=== PATIENT | female | born 2000 | race Caucasian/White ===

== ENCOUNTER 2019-11-06 08:52 | Emergency (ER) | payer OTHER, SELFPAY ==
[2019-11-06 08:59] VITALS: BP 122/63; PULSE 68; RESP 18; TEMP 36.6; O2SAT 97
--- NOTE | 2019-11-06 09:51 | ED.NAVMDI ---
HPI - Nausea/Vomiting/Diarrhea General Chief complaint: Nausea/Vomiting/Diarrhea Stated complaint: nausea Time Seen by Provider: 11/06/19 09:51 Source: patient History of Present Illness HPI Narrative: Patient presents with a history of 2 days of nausea and vomiting. Denies diarrhea no constipation. Patient states she was at her OB traffic engineer office yesterday morning with same complaints and given a clean bill of health. Patient states she has irregular periods and is scheduled for an ultrasound by her OB traffic engineer next week. Patient reports that she had lab work drawn at her OB office yesterday. Patient states she was told that everything was within normal limits. Patient has an appointment to follow-up with her OB traffic engineer after the ultrasound next week. Patient states she is able to tolerate liquids well but feels nauseated at times. No abdominal pain no pelvic pain denies any urinary symptoms. Patient states her OB traffic engineer told her to relax and the nausea would resolve. Patient has had no episodes of nausea or vomiting for the past 24 hours. Related Data Allergies Allergy/AdvReac Type Severity Reaction Status Date / Time Penicillins Allergy Mild Verified 12/18/08 14:34 Review of Systems Review of Systems: Narrative: CONSTITUTIONAL: Denies fever, chills, or sweats. EYES: Denies visual changes, redness, or discharge. ENT: Denies rhinorrhea, congestion, sore throat, or otalgia. CARDIOVASCULAR: Denies chest pain, palpitations, or edema. RESPIRATORY: Denies cough or dyspnea. GASTROINTESTINAL: Denies abdominal pain, nausea, vomiting, or diarrhea. GENITOURINARY: Denies dysuria or hematuria. SKIN: Denies rash or itching. MUSCULOSKELETAL: Denies back pain, joint pain, or myalgia. NEUROLOGIC: Denies headache, numbness, or weakness. PSYCHIATRIC: Denies anxiety or depression. PMFSH Social History Social History Gender identity (if verbalized by the patient): Female Comments At time of signature, agree with nursing past medical, surgical, social and family history. There is no relevant family history pertinent to the presenting complaint Exam Narrative: Exam Narrative: GENERAL: Well-appearing, well-nourished, and in no acute distress. HEAD: Normocephalic, atraumatic. EYES: PERRLA and EOMI. ENT: Nares clear, no rhinorrhea or epistaxis. Mucous membranes moist. NECK: Supple. CHEST: Clear to auscultation. No respiratory distress. HEART: Regular rate and rhythm. No murmur heard. Normal peripheral pulses. ABDOMEN: Soft, nontender, nondistended, normal active bowel sounds. EXTREMITIES: Normal range of motion. No edema. SKIN: Warm, dry, no rash. NEURO: No focal deficits. Alert and oriented x3. [place] Coma Scale Eye Opening: Spontaneous 4 [place] Coma Scale Motor: Obeys Commands 6 [place] Coma Scale Verbal: Oriented 5 [place] Coma Scale Total 15 Course Vital Signs Vital signs: Vital Signs Temperature 36.6 C 11/06/19 08:59 Pulse Rate 68 11/06/19 08:59 Respiratory Rate 18 11/06/19 08:59 Blood Pressure 122/63 11/06/19 08:59 Pulse Oximetry 97 11/06/19 08:59 Temperature 36.6 C 11/06/19 08:59 Pulse Rate 68 11/06/19 08:59 Respiratory Rate 18 11/06/19 08:59 Blood Pressure 122/63 11/06/19 08:59 Pulse Oximetry 97 11/06/19 08:59 MDM - Nausea/Vomiting/Diarrhea Lab Data Labs: UCG Bedside Result Negative Reference Range: Negative UCG Bedside Result Negative Reference Range: Negative Critical Care Time Critical Care Time Critical Care Time: No Discharge Plan Discharge Clinical Impression: Nausea alone Patient Disposition: Home, Self-Care Condition: Stable Instructions: Antibiotic Form Additional Instructions: Clear liquids for the next 8-10 hours, then advance to a bland diet as tolerated A bland diet can consist of--BRAT diet which is bananas, rice, applesauce, and toast Avoid fried, greasy, fatty, fr
== END 2019-11-06 10:11 | disposition home or self-care (01) ==
PROVIDERS: Emergency Provider Nurse Practitioner Family
DX: R11.0 Nausea (principal)
CPT/HCPCS: 81025; 99203; G0463

== ENCOUNTER 2020-02-16 08:20 | Emergency (ER) | payer OTHER, SELFPAY ==
[2020-02-16 08:26] VITALS: BP 112/54; PULSE 65; RESP 16; TEMP 36.9; O2SAT 100
--- NOTE | 2020-02-16 08:53 | ED.SKABFB ---
HPI - Skin/Abscess/Foreign Bdy General Chief complaint: Skin/Abscess/Foreign Body Stated complaint: possible ringworm on rear Time Seen by Provider: 02/16/20 08:49 Source: patient and RN notes reviewed Mode of arrival: ambulatory Limitations: no limitations History of Present Illness HPI narrative: Patient presents today complaining of an area of itching to the right buttock, that she noticed upon waking this morning.Denies any known insect bites. She has tried no interventions prior to arrival. Denies pain. MD complaint: rash Related Data Home Medications Medication Instructions Recorded Confirmed PNV cmb#95-ferrous fumarate-FA 1 tablet PO DAILY 02/16/20 02/16/20 [] quetiapine 100 mg PO DAILY 02/16/20 02/16/20 Allergies Allergy/AdvReac Type Severity Reaction Status Date / Time Penicillins Allergy Mild Hives Verified 02/16/20 08:38 alprazolam [From Xanax] Allergy Hyperactive Verified 02/16/20 08:38 etonogestrel [From Nexplanon] Allergy Rash Verified 02/16/20 08:38 Review of Systems Review of Systems: Narrative: CONSTITUTIONAL: Denies body aches, fever, chills, or sweats. EYES: Denies visual changes, redness, or discharge. ENT: Denies rhinorrhea, congestion, sore throat, or otalgia. CARDIOVASCULAR: Denies chest pain, palpitations, or edema. RESPIRATORY: Denies cough or dyspnea. GASTROINTESTINAL: Denies abdominal pain, nausea, vomiting, or diarrhea. GENITOURINARY: Denies dysuria or hematuria. SKIN: Denies itching, or wounds.+Pruritic rash to right buttocks MUSCULOSKELETAL: Denies back pain, joint pain, or myalgia. NEUROLOGIC: Denies headache, numbness, tingling, or weakness. PSYCH: Denies depression or anxiety. [facility] Past Medical History Medical History (Updated 02/16/20 @ 08:56 by Leah Alarcon, AGRONOMY PROFESSOR, ) Anxiety Depression Social History Social History Gender identity (if verbalized by the patient): Female Comments At time of signature, I have reviewed and agree with nursing past medical, surgical, social and family history unless otherwise noted. Please see nursing chart for further information. There is no relevant family history pertinent to the presenting complaint Exam Narrative: Exam Narrative: GENERAL: Well-appearing, well-nourished, and in no acute distress. HEAD: Normocephalic, atraumatic. EYES: EOMI. No redness or drainage. Conjunctivae normal. ENT: Mucous membranes pink and moist. NECK: Normal AROM. CHEST: No respiratory distress. EXTREMITIES: Normal range of motion. No edema. SKIN: Warm, dry. Capillary refill normal. Normal skin turgor. 2x2 cm area of erythematous rash with central clearing, consistent with ringworm. NEURO: No focal deficits. Alert and oriented x3. Gait steady. PSYCH: Normal affect. No signs of depression or anxiety. Course Vital Signs Vital signs: Vital Signs Temperature 98.4 F 02/16/20 08:26 Pulse Rate 65 02/16/20 08:26 Respiratory Rate 16 02/16/20 08:26 Blood Pressure 112/54 L 02/16/20 08:26 Pulse Oximetry 100 02/16/20 08:26 Temperature 98.4 F 02/16/20 08:26 Pulse Rate 65 02/16/20 08:26 Respiratory Rate 16 02/16/20 08:26 Blood Pressure 112/54 L 02/16/20 08:26 Pulse Oximetry 100 02/16/20 08:26 MDM - Skin/Abscess/Foreign Bdy Differential Diagnosis Differential diagnosis: Likely abscess of skin or subcutaneous tissue, urticaria, herpes zoster, cellulitis, eczema, insect bites, impetigo and contact dermatitis Critical Care Time Critical Care Time Critical Care Time: No Discharge Plan Discharge Clinical Impression: Ringworm of body Clinical Impression: (Ruled Out): Impetigo Patient Disposition: Home, Self-Care Condition: Stable Instructions: Tinea Corporis (ED) Additional Instructions: The rash on your buttock is likely ringworm. Please purchase [id number] clotrimazole cream and 1% hydrocortisone. Mix them equally together twice a day and apply. Try not to scratch the
== END 2020-02-16 08:59 | disposition home or self-care (01) ==
PROVIDERS: Emergency Provider Nurse Practitioner; PCP Nurse Practitioner Family
DX: B35.4 Tinea corporis (principal)
CPT/HCPCS: 99211; G0463

== ENCOUNTER 2021-01-06 12:51 | Emergency (ER) | payer OTHER, SELFPAY ==
[2021-01-06 13:00] VITALS: BP 126/63; PULSE 84; RESP 18; TEMP 36.8; O2SAT 99
--- NOTE | 2021-01-06 13:02 | ED.ABDPAIN ---
HPI - Abdominal Pain General Chief Complaint: Abdominal Pain Stated Complaint: pain in abdomen Time Seen by Provider: 01/06/21 13:02 Source: patient and RN notes reviewed History of Present Illness HPI narrative: Patient is a 20-year-old female who presents the urgent care with complaints of lower abdominal pains. Patient states that they have been present for approximately 1 or 2 weeks and she has had intermittent nausea. Patient denies of any vomiting or fevers. 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 Patient states that she has had 2+ test and has not had a period since October. Patient wanted confirmation of . Denies of any urinary symptoms. States that she is called her LIGHTING TECHNICIAN several times and they have not gotten back to her for an appointment. No other acute complaints. No acute distress noted. Patient aware of the plan of care. Some parts of this dictation were generated by voice recognition software and may contain typographical and/or grammatical inaccuracies. Related Data Home Medications Medication Instructions Recorded Confirmed vit no.347-qwav-[id number] 1 tablet PO DAILY 01/06/21 01/06/21 [Classic ] Allergies Allergy/AdvReac Type Severity Reaction Status Date / Time Penicillins Allergy Mild Hives Verified 01/06/21 13:11 alprazolam [From Xanax] Allergy Hyperactive Verified 01/06/21 13:11 etonogestrel [From Nexplanon] Allergy Rash Verified 01/06/21 13:11 Review of Systems Review of Systems: Narrative: CONSTITUTIONAL: Denies fever, chills, or sweats. EYES: Denies visual changes, redness, or discharge. ENT: Denies rhinorrhea, congestion, sore throat, or otalgia. CARDIOVASCULAR: Denies chest pain, palpitations, or edema. RESPIRATORY: Denies cough or dyspnea. GASTROINTESTINAL: Reports of intermittent lower abdominal pains with persistent nausea GENITOURINARY: Denies dysuria or hematuria. SKIN: Denies rash or itching. MUSCULOSKELETAL: Denies back pain, joint pain, or myalgia. NEUROLOGIC: Denies headache, numbness, or weakness. All other systems reviewed are negative, except as documented in HPI. PENDING SALE TO [facility] Past Medical History Medical History (Updated 01/06/21 @ 13:24 by Leah E. Springman, BACK WEDGER) Anxiety Depression Social History Social History Gender identity (if verbalized by the patient): Female Comments At the time of my signature, I reviewed and agree with the nursing past medical, surgical, social, and family history. There is no relevant family history pertinent to the patient complaint. Exam Narrative: Exam Narrative: GENERAL: This is a well-nourished, well-developed patient, in no apparent distress. HEAD: normocephalic, atraumatic. EYES: PERRL. Sclera clear/white. Vision is grossly intact. EARS: External ears normal NOSE: External nose normal with no obvious nasal discharge, nares without redness, no rhinorrhea. THROAT: Mucous membranes moist, posterior pharynx clear. NECK: Neck supple CARDIOVASCULAR: Regular rate GASTROINTESTINAL: Abdomen soft, mild diffuse lower abdominal tenderness,, nondistended. Bowel sounds are active. No hepato-splenomegaly, or palpable masses. No guarding. SKIN: warm, intact with no suspicious lesions or rash, good texture and turgor. NEURO: awake, alert, and oriented to person, place and time. There were no obvious focal neurologic abnormalities. EXTREMITIES: No clubbing, cyanosis, or edema. Course Vital Signs Vital signs: Vital Signs Temperature 98.2 F 01/06/21 13:00 Pulse Rate 84 01/06/21 13:00 Respiratory Rate 18 01/06/21 13:00 Blood Pressure 126/63 01/06/21 13:00 Pulse Oximetry 99 01/06/21 13:00 Temperature 98.2 F 01/06/21 13:00 Pulse Rate 84 01/06/21 13:00 Respiratory Rate 18 01/06/21 13:00 Blood Pressure 126/63 01/06/21 13:00 Pulse Oximetry 99 01/06/21 13:00 reviewed MDM - Abdominal Pain MDM [facility]
== END 2021-01-06 13:25 | disposition home or self-care (01) ==
PROVIDERS: Emergency Provider Nurse Practitioner Family; PCP Nurse Practitioner Family
DX: R10.30 Lower abdominal pain, unspecified (principal); Z87.42 Personal history of other diseases of the female genital tract
CPT/HCPCS: 81003; 81025; 99213; G0463

== ENCOUNTER 2024-12-24 08:32 | Emergency (ER) | payer OTHER, SELFPAY ==
[2024-12-24 08:39] VITALS: BP 118/66; PULSE 72; RESP 20; TEMP 36.3; O2SAT 100
--- NOTE | 2024-12-24 08:44 | ED_ITS ---
HPI - Skin/Abscess/Foreign Bdy General Chief complaint: Skin/Abscess/Foreign Body Stated complaint: Skin Sore Time Seen by Provider: 12/24/24 08:45 Source: patient, RN notes reviewed and old records reviewed Mode of arrival: ambulatory Limitations: no limitations History of Present Illness HPI narrative: 24 year old female who presents to [facility] care with complaints of skin sore to the lower right buttock noticed last or Tuesday that is painful and has been warm. Patient reports that it did have a white pustule on it and had been red. Patient reports that she has not applied anything to area. Patient is 36 weeks . Patient denies any known fevers, chills or sweats. MD complaint: abscess/boil (small superficial on buttock) Onset (ago): day(s) (4-5 days) Location: buttocks Severity scale (1-10): 3 Treatments prior to arrival: none Related Data Home Medications ?Medication ?Instructions ?Recorded ?Confirmed ?Last Taken ?Type vits no.126-ferrous fum 1 tablet PO DAILY 01/06/21 01/06/21 Unknown History 28 mg iron-folic acid 800 mcg tablet (Classic ) Allergies Allergy/AdvReac Type Severity Reaction Status Date / Time Penicillins Allergy Mild Hives Verified 12/24/24 08:44 alprazolam (From Xanax) Allergy Hyperactive Verified 12/24/24 08:44 etonogestrel (From Nexplanon) Allergy Rash Verified 12/24/24 08:44 Review of Systems Review of Systems: CONSTITUTIONAL: Denies fever, chills, or sweats. CARDIOVASCULAR: Denies chest pain, palpitations, or edema. RESPIRATORY: Denies cough or dyspnea. GASTROINTESTINAL: Denies abdominal pain, nausea, vomiting SKIN: Reports small area of redness with no present pustule or any drainage noted or any warmth, no fluctuance of skin or surrounding tissue MUSCULOSKELETAL: Denies myalgia. NEUROLOGIC: Denies headache, numbness All systems reviewed & are unremarkable except as noted in HPI and below PMFSH Past Medical History Medical History (Updated 12/25/24 @ 11:44 by Danielle Humphries NP) Polycystic ovary syndrome Depression Anxiety Surgical History Surgical History (Updated 12/25/24 @ 11:24 by Danielle Humphries NP) History of cholecystectomy Social History Social History (Updated 12/25/24 @ 11:43 by Danielle Humphries NP) Smoking status: Current every day smoker Tobacco type: e-cigarettes/vaping Gender identity (if verbalized by the patient): Female Comments At time of signature, agree with nursing past medical, surgical, social and family history. There is no relevant family history pertinent to the presenting complaint Exam Narrative: GENERAL: Well-appearing, well-nourished, and in no acute distress. HEAD: Normocephalic, atraumatic. EYES: PERRLA and EOMI. ENT: Nares clear, no rhinorrhea or epistaxis. Mucous membranes moist. NECK: Supple.no lymphadenopathy CHEST: Clear to auscultation. No respiratory distress.SAO2 100% on room air HEART: Regular rate and rhythm. No murmur heard. Normal peripheral pulses. ABDOMEN: Soft, nontender, nondistended, normal active bowel sounds. EXTREMITIES: Normal range of motion. No edema. SKIN: Warm, dry. minimal erythema, induration, tenderness, no warmth noted or pustule noted area 0.5cm X0.5cm No vesicles,pr pustule formation NEURO: No focal deficits. Alert and oriented x3. Course Course Emergency Course: Patient is aware of diagnosis, understands and agrees to treatment plan. Anticipatory guidance given. Patient agrees to follow-up as directed and is aware of reasons to seek care at the emergency department. Portions of this record may have been created with voice recognition software Level of Care: Express Care Visit Vital Signs Vital signs: Vital Signs Temperature 36.3 C L 12/24/24 08:39 Pulse Rate 72 12/24/24 08:39 Respiratory Rate 20 12/24/24 08:39 Blood Pressure 118/66 12/24/24 08:39 Pulse Oximetry 100 12/24/24 08:39 Oxygen Delivery Room Air 12/24/24 08:39 Temperature 36.3 C L 12/24/24 08:39 Pulse Rate 72 12/24/24 08:39 Respiratory Rate 20 12/24/24 08:39 Blood Pressure 118/66 12/24/24 08:39 Pulse Oximetry 100 12/24/24 08:39 Oxygen Delivery Room Air 12/24/24 08:39 Reviewed MDM - Skin/Abscess/Foreign Bdy MDM Narrative Medical decision making narrative: Does not appear at this time to be erythema multiforme, bullous, SJS, TEN; no evidence at this time to suggest RMSF, endocarditis or Lyme disease; patient looks well, nontoxic and is tolerating oral intake; no neurologic signs or symptoms; no headache, photophobia or neck pain; afebrile; appropriate for initial outpatient treatment; discussed the importance of follow-up, patient agrees. Patient does not have history of penetrating trauma, laceration, blunt trauma, recent surgery, immunosuppression, malignancy, obesity, alcoholism, corticosteroid use. Question cellulitis, necrotizing soft tissue infection, abscess. Differential Diagnosis Differential diagnosis: Likely abscess of skin or subcutaneous tissue, cellulitis and other (superficial abscess on buttock) Medical Records Attestation: I reviewed the patient's medical records. Critical Care Time Critical Care Time Critical Care Time: No Discharge Plan Discharge Clinical Impression: Cellulitis and abscess of buttock Patient Disposition: Home Condition: Stable Instructions: Antibiotic Form, Abscess Follow-up (ED) Additional Instructions: Cleanse wound daily with liquid Dial soap rinse well apply mupirocin ointment da nahomy x2 watch for increasing infection--redness, swelling, drainage Tylenol for any pain follow up with PCP in 7-10 days for a wound check recheck if develop fever, chills, increasing symptom Go to the ER if your symptoms become worse of if ANY new symptoms develop If your symptoms persist, change or worsen significantly before you can contact your personal physician then please, without delay, go to the emergency department for further evaluation. Follow-up with PCP in 7-10 days or sooner if needed Patient Language: Upper Sorbian Prescriptions: New mupirocin [Centany] 2 % ointment 1 applic topical BID Qty: 15 0RF cephalexin 500 mg capsule 500 mg PO Q12H Qty: 14 0RF No Action Classic 28 mg iron- 800 mcg tablet 1 tablet PO DAILY Follow-up/Referrals: Alirio,Alexa Yousif APN [Primary Care Provider] - Time of Disposition: 09:14 [place] Coma Scale Eyes: Open Verbal: Oriented and Alert Motor: Follows Commands [place] Coma Total Score: 15
--- OUTSIDE RECORDS SUMMARY | 2024-12-24 09:09 | XMS_ITS | Clinical Summary ---
Author Organization [facility] Address [address] [place] [address] Phone Care Team Providers Care Mortgage Counselor Name Role Phone Alexa Amezquita APRN, CNP Primary Care Provider [phone] Allergies Active Allergy Reactions Criticality Noted Date Comments Amoxicillin Hives 12/27/2015 Etonogestrel Nausea,Vomiting 01/12/2019 Alprazolam Hallucinations 06/05/2016 Medications Vit-Fe Fumarate-FA ( VITAMINS PO) Take 1 Tablet by mouth. (Classic ) 28-0.8 MG Tablet Active traMADol (Ultram) 50 MG TabletIndicatio ns:Cervical radiculopathy,R ight ankle pain,Low back pain Take 1 Tablet by mouth every 8 hours as needed for Moderate or more severe pain. 6 Tablet 09/04/2021 Active Active Problems Problem Noted Date Diagnosed Date Panic attacks 12/21/2016 Depression 12/19/2016 Estimated Date of Delivery Comme nts Yes 01/22/2025 Resolved Problems Problem Noted Date Diagnosed Date Resolved Date Intentional drug overdose 02/13/2021 Encounters Date Type Department Care Team Description 10/20/2024 6:36 PM [facility] - 10/20/2024 8:58 PM [facility] Emergency [facility] Emergency [address] [place] [address] May Gates APRN, CNP Abdominal pain during , antepartum Discharge Disposition: Short Term Hospital for Inpt Care 10/20/2024 Travel from Last 3 Months Immunizations Immunization Administration Dates Next Due Influenza Vaccine, Quadrivalent, PF 05/16/2017 Family History Medical History Relation Name Comments Heart Attack Father No Known Problems Mother Heart Disease Paternal Grandmother Relation Name Status Comments Father Mother Alive Paternal Grandmother Alive Social History Tobacco Use Types Packs/Day Years Used Date Smoking Tobacco: Former Smokeless Tobacco: Never Tobacco Cessation:Counseling Given: Yes Alcohol Use Standard Drinks/Week Comments Yes 0 (1 standard drink = 0.6 oz pur e alcohol) rarely Sexually Active Control Partners Comments Not Currently Male Estimated Date of Delivery Comme nts Yes 01/22/2025 Sex and Gender Information Value Date Recorded Sex Assigned at Not on file Legal Sex Female 11:31 PM CDT Gender Identity Not on file Sexual Orientation Not on file Last Filed Vital Signs Vital Sign Reading Time Taken Comments Blood Pressure 112/69 10/20/2024 8:48 PM [facility] Pulse 82 10/20/2024 8:48 PM [facility] Temperature 36.6 C (97.9 F) 10/20/2024 6:40 PM [facility] Respiratory Rate 17 10/20/2024 8:48 PM [facility] Oxygen Saturation 100% 10/20/2024 8:48 PM [facility] Inhaled Oxygen Concentration - - Weight 74.8 kg (165 lb) 10/20/2024 6:40 PM [facility] Height 147.3 cm (4' 10 ) 10/20/2024 6:40 PM [facility] Body Mass Index 34.49 10/20/2024 6:40 PM [facility] Plan of Treatment Health Maintenance Due Date Last Done Comments Hepatitis C Virus (HCV) Screening 1999 Pap Smear 2020 02/18/2017 SARS-COV-2 Immunization ( season) 2024 09/21/2021, 09/11/2021 Influenza Immunization (Season Ended) 2025 09/26/2018, 05/16/2017, 10/11/2016 Hepatitis B Immunization Completed 001, 01/06/2000, 1999 Pneumococcal Immunization Combined Aged Out 04/05/2001, 10/14/2000 No longer eligibl e based on patient's age to complete this topic DTaP/Tdap/Td Immunization Discontinued 2012, 04/19/2005, 03/22/2001, Additional history exists TdaP Immunization Completed 02/05/2013 Meningococcal Immunization (ACWY) Completed 09/08/2015, 02/05/2013 Meningococcal B Immunization Discontinued 06/01/2018, 10/11/2016 Human Papillomavirus (HPV) Immunization Completed 12/13/2018, 05/16/2014, 02/05/2013 Respiratory Syncytial Virus (RSV) Immunization (Adult) (No Doses Required) Completed Rotavirus Immunization Aged Out No lo nger eligible based on patient's age to complete this topic Procedures Procedure Name Priority Date/Time Associated Diagnosis Comments CBC WITH AUTO DIFFERENTIAL STAT 10/20/2024 6:56 PM [facility] URINALYSIS REFLEX IF INDICATED BY ABNORMAL RESULTS STAT 10/20/2024 6:56 PM [facility] CMP (COMPREHENSIVE METABOLIC PANEL) STAT 10/20/2024 6:56 PM [facility] COMPLETE BLOOD COUNT (CBC) WITH DIFF STAT 10/20/2024 6:56 PM [facility] RSV,SARS-COV-2,INFLUE NZA A&B BY PCR STAT 10/20/2024 6:56 PM [facility] PATHOLOGY CYTOLOGY BARREL PLANER Routine 02/18/2017 4:35 PM CDT Gynecologic exam normal Screen for STD (sexually transmitted disease) from Last 3 Months or Most Recently Relevant to Health Maintenance Results * (ABNORMAL) Urinalysis w/ Reflex (10/20/2024 6:56 PM [facility]) SPECIFIC GRAVITY 1.025 1.003 - 1.030 10/20/2024 7:45 PM [facility] URINE PH 6.0 5.0 - 9.0 10/20/2024 7:45 PM [facility] WBC ESTERASE Negative Negative 10/20/2024 7:45 PM [facility] NITRITE Negative Negative 10/20/2024 7:45 PM [facility] PROTEIN, RANDOM URINE 30 mg/dL(A) Negative 10/20/2024 7:45 PM [facility] URINE GLUCOSE, QUAL Negative Negative 10/20/2024 7:45 PM [facility] URINE KETONES 150 mg/dL(A) Negative 7:45 PM [facility] UROBILINOGEN Normal Normal mg/dL 10/20/2024 7:45 PM [facility] URINE BLOOD Negative Negative rosa/ul 10/20/2024 7:45 PM [facility] URINALYSIS COLOR Yellow 10/20/19 7:45 PM [facility] URINALYSIS CLARITY Very Cloudy 10/20/2024 7:45 PM [facility] WBC (Urine) 0-5 Negative, 0-5 /hpf 10/20/2024 7:45 PM [facility] URINE RBC'S 0-2 Negative, 0-2 /hpf 10/20/2024 7:45 PM [facility] EPITHELIAL CELLS Large amount squamous /lpf 10/20/2024 7:45 PM [facility] BACTERIA, URINE Few(A) Negative /hpf 10/20/2024 7:45 PM [facility] Urine URINE SPECIMEN / Unknown Non-Phlebotomy Collection / Unknown 10/20/2024 6:56 PM [facility] 10/20/2024 7:15 PM [facility] May Gates APRN, GREASER OPERATOR URINE ORDERABLES F inal Result [facility] [address] [place] [address] * GALE-COV-2 Flu RSV - (Quad PCR) (10/20/2024 6:56 PM [facility]) FLU A Negative Negative, Error 10/20/2024 7:54 PM [facility] FLU B Negative Negative 10/20/2024 7:54 PM [facility] RESP SYNC VIRUS Negative Negative 7:54 PM [facility] SARSCOV2 NOT DETECTED (Reference Range for this test is Not Detected) 10/20/2024 7:54 PM [facility] Comment:This test was perfor med by a Reverse Sterile Processing Manager PCR Method. Swab NASOPHARYNGEAL SWAB / Unknown Non-Phlebotomy Collection / Unknown 10/20/2024 6:56 PM [facility] 10/20/2024 7:15 PM [facility] us May Gates APRN, KESHAWN MICROBIOLOGY - GEN ERAL ORDERABLES Final Result [facility] [address] [place] [address] * (ABNORMAL) CBC with Auto Differential (10/20/2024 6:56 PM [facility]) WBC 12.97(H) 4.00 - 12.00 10(3)/mcL 10/20/2024 7:18 PM [facility] RBC 3.94 3.80 - 5.30 10(6)/mcL 10/20/2024 7:18 PM [facility] HEMOGLOBIN (HGB) 12.3 12.0 - 15.8 g/dL 10/20/2024 7:18 PM [facility] HEMATOCRIT (HCT) 36.2 36.0 - 47.0 % 10/20/2024 7:18 PM [facility] MCV 91.9 82.0 - 96.0 fL 10/20/2024 7:18 PM [facility] MCH 31.2 26.0 - 34.0 pg 10/20/2024 7:18 PM [facility] MCHC 34.0 31.0 - 36.0 g/dL 10/20/2024 7:18 PM [facility] PLATELET COUNT 212 140 - 440 10(3)/mcL 10/20/2024 7:18 PM [facility] RDW 12.0 11.8 - 15.5 % 10/20/2024 7:18 PM [facility] MPV 11.0 9.7 - 12.4 fL 10/20/2024 7:18 PM [facility] NEUTROPHILS 77.0(H) 47.0 - 73.0 % 10/20/2024 7:18 PM [facility] LYMPHOCYTES 15.7(L) 18.0 - 42.0 % 10/20/2024 7:18 PM [facility] MONOCYTES 6.6 4.0 - 12.0 % 10/20/2024 7:18 PM [facility] EOSINOPHILS 0.5 0.0 - 5.0 % 10/20/2024 7:18 PM [facility] BASOPHILS 0.2 0.0 - 1.0 % 10/20/2024 7:18 PM [facility] ABSOLUTE NEUTROPHILS 9.98(H) 1.60 - 7.70 10(3)/mcL 10/20/2024 7:18 PM [facility] ABSOLUTE LYMPHOCYTES 2.04 1.30 - 3.20 10(3)/[facility] 10/20/2024 7:18 PM [facility] ABSOLUTE MONOCYTES 0.85 0.20 - 1.00 10(3)/mcL 10/20/2024 7:18 PM [facility] ABSOLUTE EOSINOPHIL 0.07 0.00 - 0.40 10(3)/[facility] 10/20/2024 7:18 PM [facility] ABSOLUTE BASOPHILS 0.03 0.00 - 0.10 10(3)/[facility] 10/20/2024 7:18 PM [facility] NRBC PER 100 WBC 0 10/20/19 7:18 PM [facility] Blood Venipuncture / Unknown 10/20/2024 6:56 PM [facility] 10/20/2024 7:15 PM [facility] May Gates CHROME CLEANER, GREASER OPERATOR HEMATOLOGY ORDERAB LES Final Result [facility] [address] [place] [address] * (ABNORMAL) CMP (10/20/2024 6:56 PM [facility]) SODIUM 137 136 - 145 mmol/L 10/20/2024 7:39 PM [facility] POTASSIUM 3.5 3.5 - 5.1 mmol/L 10/20/2024 7:39 PM [facility] CHLORIDE 105 98 - 107 mmol/L 10/20/2024 7:39 PM [facility] CO2, VENOUS 21(L) 22 - 30 mmol/L 10/20/2024 7:39 PM [facility] ANION GAP 14.5 <18.0 mmol/L 10/20/2024 7:39 PM [facility] GLUCOSE 72 70 - 99 mg/dL 10/20/2024 7:39 PM [facility] BUN 11 5 - 18 mg/dL 10/20/2024 7:39 PM [facility] CREATININE, BLOOD 0.80 0.60 - 1.00 mg/dL 10/20/2024 7:39 PM [facility] BUN/CREATININE RATIO 14 12 - 20 ratio 10/20/2024 7:39 PM [facility] TOTAL PROTEIN 8.2(H) 6.0 - 8.0 g/dL 10/20/2024 7:39 PM [facility] ALBUMIN 4.0 3.5 - 5.0 g/dL 10/20/2024 7:39 PM [facility] A/G RATIO 1.0 1.0 - 2.2 10/20/2024 7:39 PM [facility] CALCIUM 9.0 8.7 - 10.5 mg/dL 10/20/2024 7:39 PM [facility] T BILI 0.3 0.2 - 1.2 mg/dL 10/20/2024 7:39 PM [facility] SGOT (AST) 23 6 - 42 U/L 10/20/2024 7:39 PM [facility] SGPT (ALT) 48 6 - 55 U/L 10/20/2024 7:39 PM [facility] ALKALINE PHOSPHATASE 111 40 - 150 U/L 10/20/2024 7:39 PM [facility] GFR, ESTIMATED >60 >=60 10/20/2024 7:39 PM [facility] Comment: Creatinine Clearance is the preferred criteria for selecting drug dose adjustments in renally impaired patients. The GFR is provided as additional pertinent clinical information. GFR is reported in mL/min/1.73 sq m. Calculation based on the Chronic Kidney Disease Epidemiology Collaboration (CKD- EPI) equation refit without adjustment for race. GFR, EST. >60 >=60 025 7:39 PM [facility] GFR, EST. NONAFRICAN >60 >=60 10/20/2024 7:39 PM [facility] Blood Venipuncture / Unknown 10/20/2024 6:56 PM [facility] 10/20/2024 7:15 PM [facility] us May Gates APRN, GREASER OPERATOR CHEMISTRY ORDERABL ES Final Result [facility] [address] [place] [address] * PATHOLOGY CYTOLOGY BARREL PLANER (02/18/2017 4:35 PM CDT) SPECIMEN ADEQUACY Satisfactory for evaluation. Endocervical cells present. 02/22/2017 8:43 AM CDT [facility] DESCRIPTIVE DIAGNOSIS Negative for intraepithelial lesions. No dysplastic cells present. 02/22/2017 8:43 AM CDT [facility] at 0843 CDT AUTOMATED EXAMINATION Analysis of this sample has been assisted by an automated imaging and review system ([employer] System, [employer], [place], [place]). This case is further evaluated and finalized by a home sales consultant and/or pathologist. 02/22/2017 8:43 AM CDT [facility] DISCLAIMER The PAP smear is a screening test designed to detect cancerous or precancerous cells of the uterine cervix. It is one of the best means available for detection of cervical cancer but still carries an inherent false-negative rate. The consequences of a false-negative PAP result can be minimized by adhering to current screening guidelines. The following are general guidelines recommended by the ACS, ASCP, ASCCP, and ACOG: PAP testing is recommended every three years for women 21-29, Co-Testing , a PAP test in conjunction with an HPV (Human Papillomavirus) test for women ages 30-65, and no PAP or HPV testing for women under the age of 21 or older than 65 unless clinically indicated. 02/22/2017 8:43 AM CDT [facility] Case Report Gynecologic Cytology Report Case: [id number] Authorizing Provider: Brian Mukherjee MD Collected: 02/18/2017 04:35 PM Ordering Location: [facility] Received: 02/18/2017 04:35 PM GROUP - OBSTETRICS AND GYNECOLOGY - [place] First Screen: Lizette Harris Specimen: Cervical/Endocervic al, liquid based thin layer preparation (Thin Prep ), CERVIX/ENDOCERVIX 02/22/2017 8:43 AM CDT [facility] Specimen of unknown material (specimen) CERVIX UTERI STRUCTURE / Unknown 02/18/2017 4:35 PM CDT 02/18/2017 4:35 PM CDT us Brian Mukherjee MD PATHOLOGY/CYTOLOGY ORDERABLES Final Result [facility] [address] [place] [address], from Last 3 Months or Most Recently Relevant to Health Maintenance Insurance MEDICAID [place] Advance Directives * Full Code (Latest Code Status on File) Date Activated Date Inactivated Comments 02/12/2021 3:33 AM 02/13/2021 7:32 PM CPR-Full David atment: FULL ARREST: Attempt Resuscitation/CPR wit intubation and mechanical ventilation. PRE-ARREST: Use entire range of life support measures to stabilize the patient. Care Teams Mortgage Counselor Relationship Specialty Start Date End Date Alexa Amezquita APRN, KESHAWN [address] [place] [address] PCP - General Family Medicine 10/23/18
--- OUTSIDE RECORDS SUMMARY | 2024-12-24 09:09 | XMS_ITS | Clinical Summary ---
Author Organization [facility] Address [address] [place] [address] Care Team Providers Care Call Center Manager Name Role Phone Alirio, Alexa Miles NP Primary Care Provider [phone] Windy Daly V. TAPROOM ATTENDANT Unavailable [phone] Allergies Active Allergy Reactions Criticality Noted Date Comments Amoxicillin Hives Medium 03/14/2019 Etonogestrel Rash Medium 04/20/2019 Alprazolam Hives Medium 03/14/2019 Medications oxyCODONE-acetamin ophen (PERCOCET) 5-325 mg per tabletIndications: Pain Take 1-2 tablets by mouth every 8 (eight) hours as needed for pain 20 tablet 3 025 Discontin ued(Patie nt Reported) traMADoL (ULTRAM) 50 mg tablet Take 1 tablet (50 mg total) by mouth every 6 (six) hours 20 tablet 3 025 Discontin ued(Patie nt Reported) ondansetron ODT (ZOFRAN-ODT) 4 mg disintegrating tablet Take 1 tablet (4 mg total) by mouth every 8 (eight) hours as needed for nausea or vomiting 20 tablet 3 025 Discontin ued(Patie nt Reported) Active Problems Problem Noted Date Diagnosed Date HROB: Hx HSV 12/04/2024 Overview (12/04/2024): Patient with history of genital herpes. Last outbreak 09/2023. Has been on valtrex suppression since. 12/04: denies symptoms. Is taking suppression HROB: 12/03/2024 Overview (12/04/2024): *Comanage with Dr. Luo* 1st Trimester: [x] Dating Criteria: EDC by L=1 [] Labs: T&S:) pos H/H: 12.4/36.87 Rubella: imm VZV: imm HepB: NR Hep C: NR HIV: RPR: [x] HgbA1c: 5.0 [x] NG/CT/Trich: -/-/- [x] UCx: neg [x] Hgb electrophoresis: normal 06/2025 [] Pap: need [] IOB EPDS= ([facility] referral if indicated) [x] Genetic screening: AFP neg in PNL [x] Carrier Screen: CF neg, SMA neg [] ASA at 12 weeks (if indicated) [] Feeding Preferences Survey: benefits of discussed with patient at RN IOB 2nd Trimester: [] Anatomy ultrasound: Incomplete on 10/15: heart/profile/intracranial anatomy not clearly visualized [] Placenta: [] Hgb: Plt: Ferritin: RPR: [] 1hr GTT (24-28wks): [] EPDS= PNBHS referral (if indicated): [] Second/Third trimester education packet given - (Date) [] Flu Shot (May-Aug): [] Tdap (27-36wks): [] Rhogam (if Rh neg): [] Childbirth classes discussed [] education (colostrum, expected breast changes). 3rd Trimester: [] H/H: Plt: HIV: RPR: T&S: [] GBS: [] NG/CT: Trich: [] RSV Vaccine (May-Sep @ 32-36w6d) weeks [] Final discussion-Discussed Baby Friendly-skin to skin, rooming in, support, formula safety. [] Breast Pump order form provided: (Date) Counseling: [] Discussed anticipated weight gain in [] Method of delivery: [] Bottle of CHG 4% and hand out provided @ 36wks (if planned) [] Timing of delivery: [] Method of Feeding: Discussed baby friendly, skin to skin, rooming in, support. Formula safety. [] education: completed in all 3 trimesters [] Method of Contraception: Discussed pills, patch, ring, injection, implant, IUD. [] Algorithm Developer: [] Car seat discussed [] PP depression counseling [] A visit is recommended at 2 and 6 weeks . There is a virtual visit option at 2 weeks . During that appointment we will check BP (if indicated), mental and physical wellness. Contraception will be discussed if patient chooses. Your discharge provider will recommend scheduling these visits upon discharge from the hospital. [x] Gardasil vaccine: s/p 3 doses HROB: Trichomonal vulvovaginitis 12/03/2024 Overview (12/04/2024): Referral records repot Flagyl was sent for patient on 08/07 after she reported having sex w/ partner who had not been treated. Pos trich on 07/13/24. 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 When the anti-M antibody has an IgG component, it may cause varying degrees of hemolysis in the fetus. Anti-M IgM can be detected in 10% of women with a positive antibody screen, while 0.01%- 0.7% of women are found to have clinically significant levels of anti-M IgG. Discussed with patient that any time a blood group inherited from the father is not present in the mother antepartum or intrapartum -maternal bleeding may stimulate an immune reaction in the mother. Maternal immune reactions may also occur following blood transfusion. The formation of maternal antibodies (alloimmunization) may lead to transplacental passage of antibodies into circulation which can cause hemolytic disease in the fetus and . Untreated this can lead to significant morbidity and mortality. We first discussed that risk for hemolytic disease can be determined with a paternal genotype and this would be the first management step if feasible Furthermore discussed with patient that non-invasive screening with doppler ultrasonography and established protocols can help prevent complications. We discussed the role of serial titers, serial MCA dopplers as applicable to this patient and recommend: titers today Plan: [] Titers today [] Repeat titer at 35-36 weeks HROB: Tobacco use 12/03/2024 Overview (12/04/2024): Vapes daily I have reviewing with the patient today her tobacco use and its obstetrical implications. Use of tobacco in has been associated with the following adverse outcomes: Spontaneous , labor, delivery, intrauterine growth restriction as well as intrauterine demise. Moreover, children exposed to tobacco smoke are at an increased risk of developing childhood asthma as well as sudden infant syndrome (SIDS) in the first 6 months of life. I do recommend cessation of tobacco use and have extensively discussed this with the patient, recognizing that this addiction is rather hard to quit. I have encouraged Alma Rosa to utilize the resource of the [employer]line, whose phone number is 8-878-TIOQNOW. HROB: Depression affecting 12/03/2024 Overview (12/04/2024): Hx of depression and self harm Mood today good Plan: - Patient follows with psychiatry - EPDS q visit Housing situation unstable 12/03/2024 Overview (12/03/2024): Patient reports living with family friends with boyfriend Safety check Urinary tract infection in female 04/20/2019 Acute cervicitis 04/20/2019 Estimated Date of Delivery Comme nts Yes 01/22/2025 Based on last me nstrual period of 04/17/2024 Resolved Problems Problem Noted Date Diagnosed Date Resolved Date Gallstones 12/15/2022 12/28/2022 Overview (12/15/2022): Added automatically from request for surgery [id number] Encounters Date Type Department Care Team Description 12/12/2024 Telephone [facility] [address] [place] [address] [address] [place] [address] Tea Bee RN 12/10/2024 Telephone [facility] [address] [place] [address] 3rd [address] [place] [phone] Tea Bee, CORA 12/10/2024 Telephone [facility] [address] [place] [address] [place] [phone] Tea Bee, CORA 12/06/2024 Treatment [facility] PATHOLOGY [address] [address] Kenya Jaimes MD 12/04/2024 2:00 PM CDT Initial [facility]stetrics and [facility]cology Clinic [address] [place] [address] [place] [phone] GA: 33w0d 12/04/2024 Telephone [facility] [address] [place] [address] [place] [phone] Ankita Baez 11/20/2024 Telephone [facility] [address] [place] [address] [place] [phone] Tea Bee, RN 11/20/2024 Telephone [facility] [address] [place] [address] [place] [phone] Tea Bee, CORA 11/19/2024 Telephone [facility] [address] [place] [address] [place] [phone] Tea Bee, CORA 10/11/2024 9:19 AM BOBBIN WINDER - 10/11/2024 11:59 PM BOBBIN WINDER Hospital Encounter [facility] [address] [place] [address] Encounter for supervision of normal , antepartum, unspecified Discharge Disposition: Discharge to home or self care from Last 3 Months Surgical History Surgery Date Site/Laterality Comments CHOLECYSTECTOMY 12/17/2022 Medical History Medical History Date Comments Migraines Anxiety Depression GERD (gastroesophageal reflux disease) Family History Medical History Relation Name Comments Heart disease Father Heart disease Mother Relation Name Status Comments Father Mother Alive Social History Tobacco Use Types Packs/Day Years Used Date Smoking Tobacco: Every Day Vaping Smokeless Tobacco: Never Tobacco Cessation:Ready to Q uit: Not Asked; Counseling Given: Not Answered Comments:vape Alcohol Use Standard Drinks/Week Comments Yes 0 (1 standard drink = 0.6 oz pur e alcohol) occaisonally AUDIT-C Answer Date Recorded Frequency of Alcohol Consumption Not on file 12/15/2022 Q2: How many drinks containi ng alcohol do you have on a typical day when you are drinking? Patient does not drink Frequency of Binge Drinking Not on file 12/04 Hunger Vital Sign Answer Date Recorded Within the past 12 months, y ou worried that your food would run out before you got the money to buy more. Never true 12/05/19 Within the past 12 months, t he food you bought just didn't last and you didn't have money to get more. Never true 12/04/2024 Personal Safety Answer Date Recorded Have you ever been in or are you currently in a harmful physical or emotional relationship or is someone making you feel afraid or unsafe? Denies 06/06/2024 Estimated Date of Delivery Comme nts Yes 01/22/2025 Based on last me nstrual period of 04/17/2024 Sex and Gender Information Value Date Recorded Sex Assigned at Not on file Legal Sex Female 4:48 PM BOBBIN WINDER Gender Identity Female 10/21/2024 12:19 AM BOBBIN WINDER Sexual Orientation Straight 10/21/2024 12 :19 AM BOBBIN WINDER Obstetrics History Para Term AB IAB SAB Ectopic Multiple Livin g Live Births 1 Date Outcome GA Total Labor Labor/2nd/3rd Weight Sex Type Anes PTL Tova A1 A5 Name Clin Current Summary Episode Dates Number of Fetuses Estimated Date of Delivery 12/04/2024 - Present (12/24/2024) 01/22/2025 (set by Rufina Mejía MD on 12/04/2024 based on Last Menstrual Period on 04/17/2024) Dating Summary Based On CANDACE GA Diff Last Menstrual Period on 04/17/2024 01/22/2025 Working Ultrasound on 06/06/2024 01/27/2025 -5d GA:6w3d Comment:CRL report under Allyssa burt Notes Progress Notes - Initial Pre anita - 12/04/2024 - GA:33w0d 12/04/2024 - 33w0d - Rufina Mejía MD Initial HROB Visit Date of Visit: 12/04/2024 4:53 PM Author: Kristin Mcclendon MD Referring Provider: Dr. Luo Alma Rosa Ramachandran is a 24 y.o. at 33w0d by L=1 who was referred for counseling regarding elevated anti-M titer. otherwise complicated by HSV (Valtrex), unstable housing, hx trich s/p neg YUMIKO, MJ and tobacco use, [place], depression, and hx cholecystectomy. Primary Obgyn recently left their practice and she has her first appointment with Dr. Luo coming up. She will decide if she wants to continue care there after the appointment. #Anti-M Ab: partner is A+, she is O+. She is very worried about the effect of this antibody on her . She was told that it would be detrimental to her baby's survival. This is her first . #hx HSV: last genital outbreak 09/2023, has been on valtrex suppression since #Tobacco & MJ use: vapes daily, recommended cessation #Depression: mood well controlled. Improved after reassurance today. #trich infection: s/p neg YUMIKO Patient Active Problem List Diagnosis Urinary tract infection in female Acute cervicitis HROB: HROB: Trichomonal vulvovaginitis HROB: Abnormal antibody titer HROB: Tobacco use HROB: Depression affecting Housing situation unstable HROB: Hx HSV Obstetric History: OB History Para Term AB Living 1 SAB IAB Ectopic Multiple Live Births # Outcome Date GA Lbr Sarkis/2nd Weight Sex Type Anes PTL Lv 1 Current Medical History: Past Medical History: Diagnosis Date Anxiety Depression GERD (gastroesophageal reflux disease) Migraines Allergies Allergen Reactions Amoxicillin Hives Implanon [Etonogestrel] Rash Xanax [Alprazolam] Hives Surgical History: Past Surgical History: Procedure Laterality Date CHOLECYSTECTOMY 12/17/2022 Family History: Family History Problem Relation Age of Onset Heart disease Mother Heart disease Father Social History: Social History Social History Narrative Not on file Physical Exam: Vitals: LMP 04/17/2024 General: Well appearing, pleasant female in NAD Heart: Regular rate and rhythm Lungs: non-labored Breasts: Deferred Abdomen: Soft, non-tender, non-distended Extremities: Warm and well perfused, non-tender, no lower extremity edema Assessment and Plan: Alma Rosa Ramachandran is a 24 y.o. at 33w0d by with complicated by: Problem List HROB: - Primary Overview *Comanage with Dr. Luo* 1st Trimester: [x] Dating Criteria: EDC by L=1 [] Labs: T&S:) pos H/H: 12.4/36.87 Rubella: imm VZV: imm HepB: NR Hep C: NR HIV: RPR: [x] HgbA1c: 5.0 [x] NG/CT/Trich: -/-/- [x] UCx: neg [x] Hgb electrophoresis: normal 06/2025 [] Pap: need [] IOB EPDS= (PBHS referral if indicated) [x] Genetic screening: AFP neg in PNL [x] Carrier Screen: CF neg, SMA neg [] ASA at 12 weeks (if indicated) [] Feeding Preferences Survey: benefits of discussed with patient at RN IOB 2nd Trimester: [] Anatomy ultrasound: Incomplete on 10/15: heart/profile/intracranial anatomy not clearly visualized [] Placenta: [] Hgb: Plt: Ferritin: RPR: [] 1hr GTT (24-28wks): [] EPDS= PNBHS referral (if indicated): [] Second/Third trimester education packet given - (Date) [] Flu Shot (May-Aug): [] Tdap (27-36wks): [] Rhogam (if Rh neg): [] Childbirth classes discussed [] education (colostrum, expected breast changes). 3rd Trimester: [] H/H: Plt: HIV: RPR: T&S: [] GBS: [] NG/CT: Trich: [] RSV Vaccine (May-Sep @ 32-36w6d) weeks [] Final discussion-Discussed Baby Friendly-skin to skin, rooming in, support, formula safety. [] Breast Pump order form provided: (Date) Counseling: [] Discussed anticipated weight gain in [] Method of delivery: [] Bottle of CHG 4% and hand out provided @ 36wks (if planned) [] Timing of delivery: [] Method of Feeding: Discussed baby friendly, skin to skin, rooming in, support. Formula safety. [] education: completed in all 3 trimesters [] Method of Contraception: Discussed pills, patch, ring, injection, implant, IUD. [] Algorithm Developer: [] Car seat discussed [] PP depression counseling [] A visit is recommended at 2 and 6 weeks . There is a virtual visit option at 2 weeks . During that appointment we will check BP (if indicated), mental and physical wellness. Contraception will be discussed if patient chooses. Your discharge provider will recommend scheduling these visits upon discharge from the hospital. [x] Gardasil vaccine: s/p 3 doses Relevant Orders Type and screen HROB: Trichomonal vulvovaginitis Overview Referral records repot Flagyl was sent for patient on 08/07 after she reported having sex w/ partner who had not been treated. Pos trich on 07/13/24. Reports negative YUMIKO HROB: Abnormal antibody titer Overview Referral for positive antibodyscreen PNL show antibody negative on 06/12/25 T&S 11/06/24: Anti-M 1:2 Counseling 12/04/24: The anti-M antibody is primarily an IgM antibody, although it may also be a combination of IgG and IgM antibodies. When the anti-M antibody has an IgG component, it may cause varying degrees of hemolysis in the fetus. Anti-M IgM can be detected in 10% of women with a positive antibody screen, while 0.01%- 0.7% of women are found to have clinically significant levels of anti-M IgG. Discussed with patient that any time a blood group inherited from the father is not present in the mother antepartum or intrapartum -maternal bleeding may stimulate an immune reaction in the mother. Maternal immune reactions may also occur following blood transfusion. The formation of maternal antibodies (alloimmunization) may lead to transplacental passage of antibodies into circulation which can cause hemolytic disease in the fetus and . Untreated this can lead to significant morbidity and mortality. We first discussed that risk for hemolytic disease can be determined with a paternal genotype and this would be the first management step if feasible Furthermore discussed with patient that non-invasive screening with doppler ultrasonography and established protocols can help prevent complications. We discussed the role of serial titers, serial MCA dopplers as applicable to this patient and recommend: titers today Plan: [] Titers today [] Repeat titer at 35-36 weeks Relevant Orders Type and screen HROB: Tobacco use Overview Vapes daily I have reviewing with the patient today her tobacco use and its obstetrical implications. Use of tobacco in has been associated with the following adverse outcomes: Spontaneous , labor, delivery, intrauterine growth restriction as well as intrauterine demise. Moreover, children exposed to tobacco smoke are at an increased risk of developing childhood asthma as well as sudden infant syndrome (SIDS) in the first 6 months of life. I do recommend cessation of tobacco use and have extensively discussed this with the patient, recognizing that this addiction is rather hard to quit. I have encouraged Alma Rosa to utilize the resource of the [employer], whose phone number is 8-429-UEHT-NOW. HROB: Depression affecting Overview Hx of depression and self harm Mood today good Plan: - Patient follows with psychiatry - EPDS q visit HROB: Hx HSV Overview Patient with history of genital herpes. Last outbreak 09/2023. Has been on valtrex suppression since. 12/04: denies symptoms. Is taking suppression Return to primary Obgyn for care. Recommend T&S at 35w to monitor titer. The patient was seen and discussed with Dr. Mcclendon and Dr. Greer. Rufina Mejía MD PGY-2 Obstetrics & Gynecology MFM Fellow Attestation I have seen and discussed Alma Rosa Ramachandran with the resident, Dr. Mejía on 12/04/2024. I have evaluated the patient and reviewed the treatment plan and recommendations. I agree with the findings and the plan of care as documented in the resident s note with the following addendum: Briefly, this is a 24 y.o. at 33w0d with complicated by anti-M titer, h/o SI, n/v, h/o HSV2, h/o trich, depression, asthma. Most recent titer anti-M 1:2. Repeat titer today, if below critical level of 1:16, anticipate repeat titer at 35-[address] Luo's office. If elevated, please notify HROB clinic. Otherwise, anticipate delivery at 39 weeks. Kristin Mcclendon MD Maternal- Medicine Fellow Cosigned by Lexis Greer MD at 12/08/2024 4:59 PM CDT Associated attestation - Lexis Greer MD - 12/08/2024 4:59 PM CDT I have seen and examined the patient. I agree with the findings and plan of care as documented in the resident/fellow's note. My total encounter time on 12/04/2024 was 30 minutes which was spent in the activities documented in the note. This includes time spent prior to the visit and after the visit in direct care of the patient. This time does not include time spent in any separately reportable services. Anti-M titer 1:[address] Luo, [facility] at [place]. Counseled regarding that she is below the critical titer for affecting blood levels. Recommend rechecking T&S in 1 month and if still <1:16 OK for standard care. We briefly discussed that this may affect future pregnancies if titer level changes. OK to continue routine care with Dr. Luo and follow up HROB prn. Lexis Greer MD [employer] Division of Maternal- Medicine Last Filed Vital Signs Vital Sign Reading Time Taken Comments Blood Pressure 116/61 06/06/2024 7:20 AM CDT Pulse 65 06/06/2024 7:20 AM CDT Temperature 36.5 C (97.7 F) 06/06/2024 1:54 AM CDT Respiratory Rate 14 06/06/2024 5:10 AM CDT Oxygen Saturation 98% 06/06/2024 7:20 AM CDT Inhaled Oxygen Concentration - - Weight 72.4 kg (159 lb 9.8 oz) 06/06/2024 1:54 A M CDT Height 147 cm (4' 9.87 ) 06/06/2024 1:54 AM CDT Body Mass Index 33.5 06/06/2024 1:54 AM CDT Plan of Treatment Health Maintenance Due Date Last Done Comments Cervical Cancer Screening 1999 Depression Screening 1999 Hepatitis C Screening 1999 Pneumococcal vaccine <65 (1 of 1 - PPSV23) 2005 04/05/2001, 10/14/2000 Regular Well Visit/Exam 18-64 2017 DTaP/Tdap/Td Vaccine (7 - Td or Tdap) 02/05/2023 02/05/2013, 04/19/2005, 03/22/2001, Additional history exists Influenza Vaccine (Season Ended) 2025 09/26/2018, 05/16/2017, 10/11/2016 Hepatitis B Screening Completed 03/22/2001 , 01/06/2000, 1999 Varicella Vaccines Completed 02/05/2013, 10/14/2000 HPV Vaccines Completed 12/13/2018, 05/06, 02/05/2013 Medical Devices Implanted Type Area Pvc Monitor Device Identifier Shelf Expiration Date Model / Serial / Lot Adjacent Applications Weck Hem-O-Lewis Ligate Nonabsorbable Cartridge Medium Large Latex Free [id number] - [id number] Implanted:Qty: 1 on 12/20/2022 by Antony Medina MD at [facility] N/A: Abdomen [employer] 08/17/2027 [id number] / / [id number] Description:3 clips applied Procedures Procedure Name Priority Date/Time Associated Diagnosis Comments ANTIBODY IDENTIFICATION Timed 12/04/2024 5:13 PM CDT ANTIBODY TITER Routine 12/04/2024 3:12 PM CDT B M ANTIGEN TYPE Routine 12/04/2024 3:12 PM CDT TYPE AND SCREEN Routine 12/04/2024 3:12 PM CDT Supervision of normal first , antepartum HROB: Abnormal antibody titer US OB 14 WEEKS OR OVER Schedule Routine, Read Routine (OP Routine) 10/11/2024 10:29 AM BOBBIN WINDER Encounter for supervision of normal , antepartum, unspecified from Last 3 Months Results * Antibody identification (12/04/2024 5:13 PM CDT) Pathologist [facility] Antibody ID 1 Anti-M Blood 12/04/2024 5:13 PM CDT 12/04/2024 5:13 PM CDT Rufina Mejía MD LAB BLOOD BANK TEST ORDER BARBY Final Result [facility] Department [place] [address] * B M Antigen Type (12/04/2024 3:12 PM CDT) Pathologist [facility] RBC phenotyping, M ag Negative Blood 12/04/2024 3:12 PM CDT 12/04/2024 4:13 PM CDT Kareen Aceves NP LAB BLOOD ORDERABLES Final Re sult Performing Organization Address [facility] Co de Phone Number [facility] Department [place] [address] * (ABNORMAL) Type and screen (12/04/2024 3:12 PM CDT) Pathologist [facility] Sam, indirect Positive(A) ABO Rh O Positive [facility] Blood 12/04/2024 3:12 PM CDT 12/04/2024 4:13 PM CDT Narrative [facility] - 12/04/2024 5:13 PM CDT Has the patient had Daratumumab or Isatuximab in the past 6 months?->Unknown Rufina Mejía MD LAB BLOOD BANK TEST ORDER BARBY Final Result Performing Organization Address City/[facility]/ZIP Co de Phone Number [facility] Department [place] [address] * Antibody titer (12/04/2024 3:12 PM CDT) Titer See Comment Comment:Anti-M titer: 0 Blood 12/04/2024 3:12 PM CDT 12/04/2024 4:13 PM CDT us Kareen Aceves TAPROOM ATTENDANT LAB BLOOD BANK TEST ORDERABLE S Final Result [facility] Department [place] [address] * US OB 14 Weeks Or Over (10/11/2024 10:29 AM BOBBIN WINDER) Anatomical Region Laterality Modality Abdomen N/A Ultrasound 10/15/2024 9:04 AM BOBBIN WINDER Narrative 10/15/2024 9:12 AM BOBBIN WINDER EXAM DESCRIPTION: US OB 14 WEEKS OR OVER REASON FOR STUDY: Z34.90 TECHNIQUE: Complete transabdominal obstetric ultrasound was performed. COMPARISON: 06/06/2024 FINDINGS: number: single Presentation: Breech Gestational age by this ultrasound: 24 weeks and 3 days , EDC 01/28/2025 Clinical gestation: 24 weeks and 4 days , EDC 01/27/2025 Estimated weight: 700 g , Percentile 36 % Placenta location: Right lateral Placenta-previa: None Cervical length: 3.3 cm heart rate: 138-146 bpm Amniotic fluid index: Not measured. S = Seen without gross abnormality A = Abnormal NC = Not clearly seen NS = Not seen on current exam PS = Previously seen anatomic survey: Intracranial anatomy: NC Nose/lips: NC Spine: S Four-chamber heart: NC Diaphragm: S Stomach: S Kidneys: S Bladder: S 3-vessel cord: S cord insertion: S Upper extremities: S Lower extremities: S measurements: Biparietal diameter: 5.90 cm ( 24 weeks and 1 day ) Head circumference: 22.84 cm ( 24 weeks and 6 days ) Abdominal circumference: 19.84 cm ( 24 weeks and 3 days ) Femur length: 4.38 cm ( 24 weeks and 3 days ) Ratios: FL/AC: 22.1 (20-24) HC/AC: 1.15 ( 1.05 - 1.21 ) IMPRESSION: 1. Single live intrauterine with estimated gestational age by ultrasound of 24 weeks and 3 days and estimated due date of 01/28/2025. The heart rate is 138-146 beats per minute. EFW is 36% 2. Suboptimal anatomic survey due to positioning and gestational age. Intracranial anatomy, four-chamber heart and profile are not clearly seen. THIS IS AN ELECTRONICALLY VERIFIED FINAL REPORT 10/15/2024 9:12 AM - Electronically signed by Kalpesh Petersen M.D. AG: KAYLAH Report ID: [id number] Reading Location: [id number] Procedure Note Kalpesh Petersen MD - 10/15/2024 EXAM DESCRIPTION: US OB 14 WEEKS OR OVER REASON FOR STUDY: Z34.90 TECHNIQUE: Complete transabdominal obstetric ultrasound was performed. COMPARISON: 06/06/2024 FINDINGS: number: single Presentation: Breech Gestational age by this ultrasound: 24 weeks and 3 days , EDC01/28/2025 Clinical gestation: 24 weeks and 4 days , EDC 01/27/2025 Estimated weight: 700 g , Percentile 36 % Placenta location: Right lateral Placenta-previa: None Cervical length: 3.3 cm heart rate: 138-146 bpm Amniotic fluid index: Not measured. S = Seen without gross abnormality A = Abnormal NC = Not clearly seen NS = Not seen on current exam PS = Previously seen anatomic survey: Intracranial anatomy: NC Nose/lips: NC Spine: S Four-chamber heart: NC Diaphragm: S Stomach: S Kidneys: S Bladder: S 3-vessel cord: S cord insertion: S Upper extremities: S Lower extremities: S measurements: Biparietal diameter: 5.90 cm ( 24 weeks and 1 day ) Head circumference: 22.84 cm ( 24 weeks and 6 days ) Abdominal circumference: 19.84 cm ( 24 weeks and 3 days ) Femur length: 4.38 cm ( 24 weeks and 3 days ) Ratios: FL/AC: 22.1 (20-24) HC/AC: 1.15 ( 1.05 - 1.21 ) IMPRESSION: 1. Single live intrauterine with estimated gestational age by ultrasound of 24 weeks and 3 days and estimated due date of 01/28/2025.The heart rate is 138-146 beats per minute. EFW is 36% 2. Suboptimal anatomic survey due to positioning and gestationalage. Intracranial anatomy, four-chamber heart and profile are not clearly seen. THIS IS AN ELECTRONICALLY VERIFIED FINAL REPORT 10/15/2024 9:12 AM - Electronically signed by Kalpesh Petersen M.D. AG: KAYLAH Report ID: [id number] Reading Location: [id number] us Windy Daly TAPROOM ATTENDANT IMG OB US PROCEDURES Final R esult from Last 3 Months Insurance [facility] [place] [id number] [facility] Care Teams Call Center Manager Relationship Specialty Start Date End Date Alexa Amezquita NP [address] BALDWIN [address] [place] [id number] PCP - General 04/20/19 Windy Daly NP [address] [facility] [address] MYERS B [address] [address] Nurse Practitioner 04/21/23
--- OUTSIDE RECORDS SUMMARY | 2024-12-24 09:09 | XMS_ITS | Encounter Summary ---
Author Organization [facility] Healthcare Address [address] [place] [address] Care Team Providers Care Medicine Assistant Name Role Phone Alirio, Alexa Miles NP Primary Care Provider [phone] Windy Daly V. SUPERVISOR SLATE SPLITTING Unavailable [phone] Encounter Details Date Type Department Care Team (Late st Contact Info) Description 12/06/2024 Treatment [facility] [address] [address] Kenya Jaimes MD [address] [facility] [id number] [place] [address] Social History Tobacco Use Types Packs/Day Years Used Date Smoking Tobacco: Every Day Vaping Smokeless Tobacco: Never Comments:vape Alcohol Use Standard Drinks/Week Comments Yes [...] money to buy more. Never true 12/05/19 25 Within the past 12 months, t he [...] on file Legal Sex Female 4:48 PM DIVISION ENGINEER Gender Identity Female 10/21/2024 12:19 AM DIVISION ENGINEER Sexual Orientation Straight 10/21/2024 12 :19 AM DIVISION ENGINEER documented as of this encounter Progress Notes * Kenya Jaimes MD - 12/06/2024 11:00 AM CDT Transfusion Medicine Blood Bank Note Patient Information: ABO/Rh: O positive Antibody screen: Positive Previously identified antibodies: anti-M ([facility], 11/2024) New antibodies identified: anti-M Additional testing performed: Red blood cell phenotype: M antigen negative and anti-M titer: 0 Relevant Patient History: Alma Rosa Ramachandran is a 24 y.o. woman (, at 33w2d gestation), who was referred for counseling regarding elevated anti-M titer that was identified at an outside hospital in 11/2024, which was found to be 1:2. Transfusion history is not known at this time. Testing Information: The antibody screen was positive. Antibody identification demonstrated antibodies against the M antigen in the patient???s plasma. Additional testing was performed. Phenotyping showed that the patient's red blood cells are M antigen negative. The anti-M antibody titer = 0. All other common, clinically significant antibodies have been ruled out. Clinical Relevance: Antibodies against the M antigen(s) generally have rarely been implicated in hemolytic transfusion reactions with extravascular hemolysis and hemolytic disease of the fetus and . Therefore, anti-M antibodies are generally considered to be potentially clinically significant. Presence of this antibody requires that additional testing be performed and this may result in additional time for blood product selection when ordered for transfusion. Therapeutic Relevance: ABO/Rh and crossmatch compatible red blood cell units will be provided for future transfusions. If clinically indicated based on reactivity, red blood cell units negative for the M antigen will be provided for future transfusions. Approximately 22% ABO/Rh compatible units from the donor population are expected to be compatible. Approximately 4-5 units will need to be screened to find one compatible unit for this patient. Contact Information: Please contact the [facility] Transfusion Medicine Service at (option 1) with any questions. This report has been prepared by: Kenya Jaimes MD Cosigned by Ilene Lea MD PhD at 12/07/2024 7:56 AM CDT Associated attestation - Ilene Lea MD PhD - 12/07/2024 7:56 AM CDT Attestation: I have personally reviewed the antibody result and agree with the interpretation contained in this written blood bank report. Ilene Lea MD PhD documented in this encounter Plan of Treatment Not on file documented as of this encounter Visit Diagnoses Not on filedocumented in this encounter Care Teams Medicine Assistant Relationship Specialty Start Date End Date Amezquita, Alexa Miles NP [address] [place] [address] PCP - General 04/20/19 Windy Daly NP [address] [facility] [address] LOUIS Martell [address] [address] Nurse Practitioner 04/21/23 documented as of this encounter
--- OUTSIDE RECORDS SUMMARY | 2024-12-24 09:09 | XMS_ITS | Encounter Summary ---
Author Organization [facility] Healthcare Address [address] [place] [address] Care Team Providers Care Wet Suit Gluer Name Role Phone Alexa Amezquita NP Primary Care Provider [phone] Windy Daly V. MIG TIG WELDER Unavailable [phone] Encounter Details Date Type Department Care Team (Late st Contact Info) Description 12/04/2024 Telephone Obstetrics and Gynecology Clinic [address] [facility] Health 3rd Floor [address] [place] [address] Ankita Baez Social History Tobacco Use Types Packs/Day Years [...] on file Legal Sex Female 4:48 PM FILTER WASHER AND PRESSER Gender Identity Female 10/21/2024 12:19 AM FILTER WASHER AND PRESSER Sexual Orientation Straight 10/21/2024 12 :19 AM FILTER WASHER AND PRESSER documented as of this encounter Miscellaneous Notes * Telephone Encounter - Ankita Baez - 12/04/2024 9:41 AM CDT Pt called stating she was currently at the hospital (not disclosed why). She is at the [facility]. Pt has an appt today at 2p for IOB and noted she should still make it and will cb if needed. Pt noted that she was discussing the anti m gene and would like to further discuss and know more about it. Pt would like a cb prior to 2p if possible. Please clarify needs further. documented in this encounter Plan of Treatment Not on file documented as of this encounter Visit Diagnoses Not on filedocumented in this encounter Care Teams Wet Suit Gluer Relationship Specialty Start Date End Date Alirio, Alexa Miles NP [address] [place] [address] PCP - General 04/20/19 Windy Daly NP [address] [facility] [address] LOUIS Martell [address] [address] Nurse Practitioner 04/21/23 documented as of this encounter
--- OUTSIDE RECORDS SUMMARY | 2024-12-24 09:09 | XMS_ITS | Referral Summary ---
Author Organization [facility] Address [address] [place] [address] Care Team Providers Care Senior Cost Estimator Name Role Phone Alexa Amezquita NP Primary Care Provider Windy Daly V. STEWARDESS SUPERVISOR Unavailable [phone] Encounters Date Type Department Care Team Description 12/12/2024 Telephone Obstetrics and Gynecology Clinic [address] [place] [address] [place] [phone] Tea Bee, RN 12/10/2024 Telephone [facility] Clinic [address] [place] [address] [place] [phone] Tea Bee, RN 12/10/2024 Telephone [facility] Clinic [address] [place] [address] [place] [phone] Tea Bee, RN 12/06/2024 Treatment [facility] [address] [address] Kenya Jaimes MD 12/04/2024 Telephone [facility]s [facility]ne[facility] Clinic [address] [place] [address] [place] [phone] Ankita Baez 12/04/2024 2:00 PM CDT Initial [facility]stetrics and Gynecology Clinic [address] [place] [address] [place] [phone] GA: [id number] 11/20/2024 Telephone [facility]ne[facility] Clinic [address] [place] [address] Outpatient Health 3rd Floor [address] [place] [address] Tea Bee RN 11/20/2024 Telephone [facility]s [facility]ne[facility] Clinic [address] [place] [address] Outpatient [facility] 3rd Floor [address] [place] [address] Tea Bee RN 11/19/2024 Telephone [facility]stetrics and Gynecology Clinic [address] [place] [address] 3rd Floor [address] [place] [address] Tea Bee RN 10/11/2024 9:19 AM MORTUARY BEAUTICIAN - 10/11/2024 11:59 PM MORTUARY BEAUTICIAN Hospital Encounter [facility] [address] [place] [address] Encounter for supervision of normal , antepartum, unspecified Discharge Disposition: Discharge to home or self care from Last 3 Months Allergies Active Allergy Reactions Criticality Noted Date [...] pills, patch, ring, injection, implant, IUD. [] Train Caller: [] Car seat discussed [] PP depression [...] Rosa to utilize the resource of the [employer] Quit Hotline, whose phone number is 7-258-WWYMShoefitrNOW. HROB: Depression affecting 12/03/2024 Overview (12/04/2024): Hx [...] (12/15/2022): Added automatically from request for surgery [id number] Social History Tobacco Use Types Packs/Day Years [...] on file Legal Sex Female 4:48 PM MORTUARY BEAUTICIAN Gender Identity Female 10/21/2024 12:19 AM MORTUARY BEAUTICIAN Sexual Orientation Straight 10/21/2024 12 :19 AM MORTUARY BEAUTICIAN Last Filed Vital Signs Vital Sign Reading [...] 06/06/2024 1:54 AM CDT Plan of Treatment Not on file Medical Devices Implanted Type Area Professional Advisor Device Identifier Shelf Expiration Date Model / Serial / Lot InVisM [employer] Hem-O-Lewis Ligate Nonabsorbable Cartridge Medium Large Latex Free [id number] - [id number] Implanted:Qty: 1 on 12/20/2022 by Antony Medina MD at [facility] N/A: Abdomen [employer] 08/17/2027 [id number] / / [id number] Description:3 clips applied Procedures Procedure Name [...] Read Routine (OP Routine) 10/11/2024 10:29 AM MORTUARY BEAUTICIAN Encounter for supervision of normal , antepartum, unspecified from Last 3 Months Results * Antibody identification (12/04/2024 5:13 PM CDT) Antibody ID 1 Anti-M Blood 12/04/2024 5:13 PM CDT 12/04/2024 5:13 PM CDT Rufina Mejía MD LAB BLOOD BANK TEST ORDER BARBY Final Result Performing Organization Address [facility]/ZIP Co de Phone Number [facility] Department [place] [address] * B M Antigen Type (12/04/2024 3:12 PM CDT) RBC phenotyping, M ag Negative Blood 12/04/2024 3:12 PM CDT 12/04/2024 4:13 PM CDT Kareen Aceves NP LAB BLOOD ORDERAB[place] [address] * (ABNORMAL) Type and screen (12/04/2024 3:12 PM CDT) Asm, indirect Positive(A) ABO Rh O Positive [facility] Blood 12/04/2024 3:12 PM CDT 12/04/2024 4:13 PM CDT Narrative [facility] - 12/04/2024 5:13 PM CDT Has the patient had Daratumumab or Isatuximab in the past 6 months?->Unknown us Rufina Mejía MD LAB BLOOD BANK TEST ORDER BARBY Final Result Performing Organization Address [facility] [place] [address] * Antibody titer (12/04/2024 3:12 PM CDT) Titer See Comment Comment:Anti-M titer: 0 Blood 12/04/2024 3:12 PM CDT 12/04/2024 4:13 PM CDT Kareen Aceves NP LAB BLOOD BANK TEST ORDERABLE S Final Result Performing Organization Address [facility] [place] [address] * US OB 14 Weeks Or Over (10/11/2024 10:29 AM MORTUARY BEAUTICIAN) Anatomical Region Laterality Modality Abdomen N/A Ultrasound 10/15/2024 9:04 AM MORTUARY BEAUTICIAN Narrative 10/15/2024 9:12 AM MORTUARY BEAUTICIAN EXAM DESCRIPTION: US OB 14 WEEKS OR [...] Kalpesh Petersen M.D. AG: KAYLAH Report ID: [id number] Reading Location: [id number] Procedure Note Kalpesh Petersen MD - 10/15/2024 [...] Kalpesh Petersen M.D. AG: KAYLAH Report ID: [id number] Reading Location: [id number] us Windy Daly NP IMG OB US PROCEDURES Final R esult from Last 3 Months Insurance [facility] Member Subscriber Plan / Payer ( fective 2018-Present) Name:Alma Rosa Ramachandran Relation to Subscriber:Self Name:Alma Rosa Ramachandran Payer ID:[id number] (NAIC) Type:MEDICAID RISK OTHER Address: [address] Care Teams Senior Cost Estimator Relationship Specialty Start Date End Date Alexa Amezquita NP [address] [place] [address] PCP - General 04/20/19 Windy Daly NP [address] [facility] [address] LOUIS Martell [address] [address] Nurse Practitioner 04/21/23
--- OUTSIDE RECORDS SUMMARY | 2024-12-24 09:14 | XMS_ITS | Clinical Summary ---
Author Organization [facility] Address [address] [place] [address] Care Team Providers Care Shrink Pit Operator Name Role Phone Amezquita, Alexa BRISENO Primary Care Provider [phone] Source Comments [facility],non-owned Affiliates and Associated Physician Practices is amultiple site organization consisting of ambulatory clinics and hospital sitesin [place], [place], [place]. This disclosure is being madepursuant to the Care Everywhere program and may not contain all information available regarding this patient. Last updated 18.[facility] Allergies Active Allergy Reactions Criticality Noted Date Comments Alprazolam Unknown 06/05/2016 Amoxicillin Rash Low 12/18/2013 Medications * Be aware that medications may not be up to date on this document. Alwaysverify current medications with the patient. polyethylene glycol 3350 (MIRALAX) packet Take 17 (seventeen) g by mouth 6 Active FLUoxetine (PROZAC) 20 MG capsule 7 Active traZODone (DESYREL) 100 MG tablet 7 Active risperiDONE (RISPERDAL) 1 MG tablet Take 1 (one) tablet by mouth 2 times daily Active sertraline (ZOLOFT) 25 MG tablet Take 2 (two) tablets by mouth once daily Active Vit-Fe Fumarate-FA ( vitamin) 28-0.8 MG tablet Take 1 (one) tablet by mouth once daily Active ondansetron, disintegrating, (Zofran ODT) 4 MG tabletIndicatio ns:Nausea and/or Vomiting in Take 1 (one) tablet by mouth every 8 hours as needed for Nausea/Vomitin g Allow tablet to dissolve on the tongue Reasons: Nausea and Vomiting in 20 tablet 1 Active Active Problems Problem Noted Date Diagnosed Date Abdominal pain affecting 10/20/2024 Suicide attempt by drug ingestion 10/09/2017 Assessment & Plan (10/10/2017 6:45 PM BEAUTY SHOP MANAGER): Assessment: Zita is a 17 y/o female who presents with intentional ingestion of Zoloft. She took 14 tabs of 50 mg of Zoloft yesterday around 2200. She is at risk for serotonin syndrome and requires close monitoring. It can cause cognitive effects, somatic and autonomic effects. Pt is medically stable this am and [facility] has been contacted. Plan: - Vitals q4hr, cardiorespiratory monitoring, pulse ox - I&O's - regular diet - saline lock - Toxicology consulted, appreciate recs - [facility] contacted for behavioral intake, may transfer to psych facility when placement is available Assessment & Plan (10/10/2017 3:37 AM BEAUTY SHOP MANAGER): Assessment: Zita is a 17 y/o female who presents with intentional ingestion of Zoloft. She took 14 tabs of 50 mg of Zoloft yesterday around 2200. She is at risk for serotonin syndrome and requires close monitoring. It can cause cognitive effects, somatic and autonomic effects. Plan: - Admit to General Medicine, Dr. Flores - Vitals q4hr, cardiorespiratory monitoring, pulse ox - I&O's - NPO - MIVF - Will obtain urine HCG - Toxicology consult, appreciate recs - Will consult behavioral health once medically cleared Estimated Date of Delivery Comme nts Yes 01/22/2025 Based on Patient Reported Encounters Date Type Department Care Team Description 10/20/2024 9:43 PM BEAUTY SHOP MANAGER - 10/21/2024 12:35 AM BEAUTY SHOP MANAGER Hospital Encounter [facility] [address] [place] [address] Xavi Tomlin DO Maternal Medicine Discharge Disposition: Home or Self Care 10/20/2024 Travel from Last 3 Months Family History Medical History Relation Name Comments [place]<55(male) Father Congenital Heart defect Maternal Aunt Arrhythmia Paternal Grandmother Heart Failure Paternal Grandmother [place]<65(female) Paternal Grandmother Relation Name Status Comments Father Maternal Aunt in infancy Paternal Grandmother Social History Tobacco Use Types Packs/Day Years Used Date Smoking Tobacco: Never Tobacco Cessation:Counseling Given: Yes Alcohol Use Standard Drinks/Week Comments Not Currently 0 (1 standard drink = 0.6 oz pur e alcohol) Overall Financial Resource Strain (CARDIA) Answe r Date Recorded How hard is it for you to pa y for the very basics like food, housing, medical care, and heating? Very hard 10/20/2024 [facility] [place] [facility] - Occupational Stress Questionnaire Answer Date Recorded Do you feel stress - tense, restless, nervous, or anxious, or unable to sleep at night because your mind is troubled all the time - these days? To some extent 10/20/2024 Hunger Vital Sign Answer Date Recorded Within the past 12 months, y ou worried that your food would run out before you got the money to buy more. Never true 10/20/19 25 Within the past 12 months, t he food you bought just didn't last and you didn't have money to get more. Never true 10/20/2024 PRAPARE - Transportation Answer Date Re corded In the past 12 months, has l ack of transportation kept you from medical appointments or from getting medications? Yes 10/06 In the past 12 months, has l ack of transportation kept you from meetings, work, or from getting things needed for daily living? Yes 10/20/2024 Housing Stability Vital Sign Answer Adarsh e Recorded In the last 12 months, was t here a time when you were not able to pay the mortgage or rent on time? Yes 10/20/2024 In the past 12 months, how m any times have you moved where you were living? Not on file 10/20/2024 At any time in the past 12 m [facility], were you homeless or living in a care home (including now)? Yes 10/20/2024 Estimated Date of Delivery Comme nts Yes 01/22/2025 Based on Patient Reported Sex and Gender Information Value Date Recorded Sex Assigned at Female 10/21/2024 8:14 AM BEAUTY SHOP MANAGER Legal Sex Female 10:34 AM CDT Gender Identity Female 10/21/2024 8:14 AM BEAUTY SHOP MANAGER Sexual Orientation Not on file Last Filed Vital Signs Vital Sign Reading Time Taken Comments Blood Pressure 107/59 10/21/2024 12:28 AM BEAUTY SHOP MANAGER Pulse 95 07/27/2024 3:02 PM BEAUTY SHOP MANAGER Temperature 37 C (98.6 F) 10/20/2024 9:52 PM BEAUTY SHOP MANAGER Respiratory Rate 18 10/20/2024 9:52 PM BEAUTY SHOP MANAGER Oxygen Saturation 98% 10/20/2024 10:03 PM BEAUTY SHOP MANAGER Inhaled Oxygen Concentration - - Weight 74.8 kg (165 lb) 10/20/2024 9:45 PM BEAUTY SHOP MANAGER Height 149.9 cm (4' 11 ) 10/20/2024 9:45 PM BEAUTY SHOP MANAGER Body Mass Index 33.33 10/20/2024 9:45 PM BEAUTY SHOP MANAGER Plan of Treatment Upcoming Encounters Date Type Department Care Team (Latest Contact Info) Description 03/24/2025 9:20 PM CDT Hospital Encounter [facility] [address] [place] [address] Maternal Medicine Health Maintenance Due Date Last Done Comments PAP SMEAR 1999 HIV SCREENING 2014 HPV VACCINE (1 - 3-dose series) 2014 HEPATITIS C SCREENING 09/02/2017 CHLAMYDIA/GONORRHEA SCREENING 07/15/2018 07/15/2017 DTAP/TDAP/TD VACCINES (1 - Tdap) 2018 HEPATITIS B VACCINE (1 of 3 - 19+ 3-dose series) 2018 COVID-19 VACCINE (2 - 2023-2 5 season) 2024 09/21/2021 DEPRESSION SCREENING 09/05/2024 OB-ONE HOUR GLUCOSE 10/16/2024 OB-TDAP CURRENT 10/23/2024 OB-RHOGAM INJECTION 10/30/2024 OB-GROUP B STREP SCREEN 12/18/2024 INFLUENZA VACCINE (Season Ended) 2025 09/26/2018, 05/16/2017, 10/11/2016 ZOSTER VACCINE (1 of 2) 2049 HIB VACCINE Aged Out No longer eligi ble based on patient's age to complete this topic MENINGOCOCCAL (Group B) VACCINE SHARED DECISION-MAKING Aged Out No longer eligible based on patient's age to complete this topic MENINGOCOCCAL GROUPS A/C/Y/W VACCINE Aged Out No longer eligible b ased on patient's age to complete this topic PNEUMOCOCCAL VACCINE Aged Out No long er eligible based on patient's age to complete this topic Respiratory Syncytial Virus (RSV) Vaccine Pt: or over 60 yrs (No Doses Required) Completed Procedures Procedure Name Priority Date/Time Associated Diagnosis Comments IMAGING/RADIOLOGY/XR AY RESULTS ORDER 10/22/2024 4:20 PM BEAUTY SHOP MANAGER URINALYSIS REFLEX MICROSCOPIC REFLEX CULTURE STAT 10/20/2024 11:04 PM BEAUTY SHOP MANAGER Abdominal pain affecting from Last 3 Months Results * IMAGING RADIOLOGY XRAY RESULTS ORDER (10/22/2024 4:20 PM BEAUTY SHOP MANAGER) Anatomical Region Laterality Modality Other Narrative 10/22/2024 4:20 PM BEAUTY SHOP MANAGER Ordered by an unspecified provider. us Scanned Document IMAGING Final Result * (ABNORMAL) URINALYSIS REFLEX MICROSCOPIC REFLEX CULTURE (10/20/2024 11:04 PM BEAUTY SHOP MANAGER) Color UA Yellow Yellow, Straw 10/20/2024 11:18 PM BEAUTY SHOP MANAGER [facility] Clarity UA Clear Clear 10/20/2024 11:18 PM BEAUTY SHOP MANAGER [facility] Glucose UA Normal Normal 10/20/2024 11:18 PM BEAUTY SHOP MANAGER [facility] Bilirubin UA Negative Negative 10/20/2024 11:18 PM BEAUTY SHOP MANAGER [facility] Ketone UA 2+(A) Negative 10/20/2024 11:18 PM BEAUTY SHOP MANAGER [facility] Specific [place] UA 1.011 1.005 - 1.030 10/20/2024 11:18 PM BEAUTY SHOP MANAGER [facility] Blood UA Negative Negative 10/20/2024 11:18 PM BEAUTY SHOP MANAGER [facility] pH UA 5.5 5.0 - 9.0 pH 10/20/2024 11:18 PM BEAUTY SHOP MANAGER [facility] Protein UA Negative Negative 10/20/2024 11:18 PM BEAUTY SHOP MANAGER [facility] Urobilinogen UA Normal Normal mg/dL 025 11:18 PM BEAUTY SHOP MANAGER [facility] Nitrite UA Negative Negative 10/20/2024 11:18 PM BEAUTY SHOP MANAGER [facility] Leukocyte UA Negative Negative 10/20/2024 11:18 PM BEAUTY SHOP MANAGER [facility] Urine URINE SPECIMEN OBTAINED BY CLEAN CATCH PROCEDURE / Unknown Collection / Unknown 10/20/2024 11:04 PM BEAUTY SHOP MANAGER 10/20/2024 11:13 PM BEAUTY SHOP MANAGER Narrative [facility] - 10/20/2024 11:18 PM BEAUTY SHOP MANAGER Xavi Tomlin DO LAB - URINALYSIS ORDERABLES Fi nal Result [facility] [address] [place] [address] from Last 3 Months Insurance [facility] Advance Directives * Full Code (Latest Code Status on File) Date Activated Date Inactivated Comments 10/10/2017 1:52 AM 10/11/2017 12:01 AM Care Teams Shrink Pit Operator Relationship Specialty Start Date End Date Alexa Amezquita APRN-CNP [address] [place] [address] PCP - General Nurse Practitioner Family 07/27/24
== END 2024-12-24 09:17 | disposition home or self-care (01) ==
PROVIDERS: Emergency Provider Registered Nurse; PCP Nurse Practitioner Family
DX: O99.713 Diseases of the skin and subcutaneous tissue complicating pregnancy, third trimester (principal); Z3A.36 36 weeks gestation of pregnancy; L03.317 Cellulitis of buttock; L02.31 Cutaneous abscess of buttock; O99.333 Smoking (tobacco) complicating pregnancy, third trimester; F17.290 Nicotine dependence, other tobacco product, uncomplicated; O99.283 Endocrine, nutritional and metabolic diseases complicating pregnancy, third trimester; E28.2 Polycystic ovarian syndrome
CPT/HCPCS: 99213; G0463